=== PATIENT | male | born 1950 | race Caucasian/White ===

== ENCOUNTER 2022-05-18 06:50 | Inpatient (IN) | payer MEDICARE ==
[2022-05-13 14:37] LABS: BASOPHILS # (AUTO) 0.1 X10'3 (0-0.2); BASOPHILS % (AUTO) 1.1 % (0-1); EOSINOPHILS # (AUTO) 0.1 X10'3 (0-0.9); EOSINOPHILS % (AUTO) 1.7 % (0-6); LYMPHOCYTES # (AUTO) 1.5 X10'3 (1.1-4.8); LYMPHOCYTES % (AUTO) 26.2 % (21-51); MEAN CORPUSCULAR HEMOGLOBIN 24.9 PG (27.0-31.0); MEAN CORPUSCULAR HGB CONC 31.3 g/dL (33.0-36.5); MEAN CORPUSCULAR VOLUME 79.4 FL (78-98); MONOCYTES # (AUTO) 0.6 X10'3 (0-0.9); MONOCYTES % (AUTO) 10.3 % (2-12); NEUTROPHILS # (AUTO) 3.5 X10'3 (1.8-7.7); NEUTROPHILS % (AUTO) 60.7 % (42-75); PRE OP HEMATOCRIT 34.5 % (42.0-52.0); PRE OP PLATELET COUNT 324 X10'3 (140-440); RED BLOOD COUNT 4.35 X10'6 (4.70-6.10); RED CELL DISTRIBUTION WIDTH 17.7 % (11.5-14.5)
[2022-05-13 14:45] LABS: CLARITY,URINE SLIGHTLY CLOUDY (Clear); COLOR,URINE YELLOW (Yellow); GLUCOSE, URINE NEGATIVE (Neg); KETONES,URINE TRACE mg/dl (Neg); LEUKOCYTE ESTERASE ,URINE NEGATIVE (Neg); NITRITES, URINE NEGATIVE (Neg); OCCULT BLOOD,URINE TRACE-INTACT (Neg); PROTEIN,URINE 30 mg/dl (Neg); UROBILINOGEN,URINE 0.2 E.U/dL (0.2-1.0)
[2022-05-13 14:49] LABS: PRE OP HEMOGLOBIN 10.8 g/dL (14.0-17.9); PRE OP INR 1.2 INR; PRE OP PROTIME 11.9 SECONDS (9.0-12.0)
[2022-05-13 14:50] LABS: UA COLLECTION TYPE CLN CATCH MIDSTREAM
[2022-05-13 14:58] LABS: ALBUMIN 3.3 G/DL (3.4-5.0); ALBUMIN/GLOBULIN RATIO 0.7 (1.1-1.5); ALKALINE PHOSPHATASE 66 IU/L (46-116); BLOOD UREA NITROGEN 10 MG/DL (7-18); BUN/CREATININE RATIO 10.6 (5.4-32.0); CHLORIDE 109 MMOL/L (99-107); CREATININE 0.94 MG/DL (0.60-1.10); PRE OP ALT 19 U/L (30-65); PRE OP ANION GAP 13 (8-16); PRE OP AST 16 U/L (10-37); PRE OP BILIRUB, TOTAL 0.5 MG/DL (0.0-1.0); PRE OP GLUCOSE 84 MG/DL (70-104); PRE OP POTASSIUM 3.5 MMOL/L (3.4-5.1); PRE OP SODIUM 145 MMOL/L (135-145); TOTAL CARBON DIOXIDE 22.8 MMOL/L (24-32); TOTAL PROTEIN 7.8 G/DL (6.4-8.2); eGFR 79 ML/MIN
[2022-05-13 14:59] LABS: BACTERIA,URINE NONE SEEN /HPF (Neg); MUCUS STRANDS MODERATE /LPF (Neg); RBC,URINE 0-2 /HPF (0-2); SQUAMOUS EPITHELIAL CELL,UR MODERATE /LPF (FEW); WBC,URINE 0-4 /HPF (0-4)
[2022-05-18] VITALS (13 sets, daily range): BP systolic 118–136; BP diastolic 67–87
[~2022-05-18] VITALS: Ht 177.8 cm; Wt 76.6 kg
[~2022-05-18 06:50] MED LIST: APIX5TAB3 PO; CLINDAMYCIN PO; METF-436 PO; MIDO10TA PO; PRAS25CA PO; clindamycin-Cleocin 900mg/D5W 50 ML IV ONE; famotidine 20mg tablet PO ONE
[2022-05-18] MEDS ORDERED: BUPIVAcaine/PF 2.5mg/ml (0.25%) 10ml vial ONE ×2 (07:13→14:33)
[2022-05-18] MEDS: ringers solution, lacted 1,000 ML IV SCH ×2 (08:06→17:13)
[2022-05-18] MEDS ORDERED: morphine 2 MG/ML inj. syringe IV PRN (08:25)
[2022-05-18] MEDS ORDERED: morphine 4 MG/ML inj SYRINge IV PRN (08:25)
[2022-05-18] MEDS ORDERED: labetalol 20mg/4ml (5mg/ml) syringe IV PRN (08:25)
[2022-05-18] MEDS ORDERED: hydrALAZINE 20mg/ml inj. IV PRN (08:25)
[2022-05-18] MEDS ORDERED: acetaminophen 1,000mg/100ml IV 100 ML IV PRN (08:25)
[2022-05-18] MEDS ORDERED: ringers solution, lacted 1,000 ML IV SCH (08:25)
[2022-05-18] MEDS ORDERED: proCHLORperazine 10 MG/2 ml inj IV PRN (08:25)
[2022-05-18] MEDS ORDERED: ondansetron/PF 4mg/2ml inj IV PRN (08:25)
[2022-05-18] MEDS ORDERED: meperidine/PF 25mg/ml syringe IV PRN ×3 (08:25)
[2022-05-18] MEDS ORDERED: sevoflurane 250ml liquid IH ONE (11:49)
[2022-05-18] MEDS ORDERED: rocuronium 10mg/ml inj IV ONE ×2 (11:49→13:42)
[2022-05-18] MEDS ORDERED: midazolam 1 mg/ML 2ml injection ONE (11:57)
[2022-05-18] MEDS ORDERED: fentaNYL /PF 50mcg/ml 5ml ampule ONE (11:59)
[2022-05-18] MEDS ORDERED: propofol inj 20 ML IV ONE (13:42)
[2022-05-18] MEDS ORDERED: LIDOcaine 1%/PF 5ML 10 MG/ML VIAL ONE ×2 (13:42)
[2022-05-18] MEDS ORDERED: ePHEDrine 50MG/ML INJ. ONE (13:42)
[2022-05-18] MEDS ORDERED: ondansetron/PF 4mg/2ml inj ONE (13:53)
[2022-05-18] MEDS ORDERED: dexamethasone sod phosphate 4mg/ml inj. ONE (13:53)
[2022-05-18] MEDS ORDERED: albumin (Human) 5% 250ml 250 ML IV ONE (14:15)
[2022-05-18] MEDS ORDERED: morphine 4 MG/ML inj SYRINge ONE (14:29)
[2022-05-18] MEDS ORDERED: BUPIVACAINE liposomal/PF 13.3 MG/ML vial IM ONE (14:33)
[2022-05-18] MEDS ORDERED: glycopyrrolate 0.2mg/ml inj ONE (14:51)
[2022-05-18] MEDS ORDERED: neostigmine methylsulfate 1 MG/ML 10ml vial ONE (14:51)
[2022-05-18] MEDS ORDERED: sugammadex 200mg/2ml injection IV ONE (15:04)
--- NOTE | 2022-05-18 15:10 | NUR ---
Received from OR via , accompanied by Anesthesiologist and report given by Anesthesiolgist. PATIENT WAKING UP, DENIES PAIN, V/S WNL, SCD ON 20G PIV TO LUE, NEUROVASCULAR CHECKS INTACT. LARGE DRESSING TO ABDOMEN CDI WITH NO S/S OF COMPLICATIONS. F/C DRAINING CLEAR YELLOW URINE
[2022-05-18] MEDS ORDERED: HYDROcodone/acetaminophen 10/325mg tab PO ONE (15:40)
--- NOTE | 2022-05-18 16:40 | NUR ---
PATIENT SLEEPY BUT ORIENTED X4, C/O PAIN AT TIMES SEE EMAR., V/S WNL, SCD ON 20G PIV TO LUE, NEUROVASCULAR CHECKS INTACT. LARGE DRESSING TO ABDOMEN CDI WITH NO S/S OF COMPLICATIONS. F/C DRAINING CLEAR YELLOW URINE WITH ONLY 60CC AFTER FLUID BOLUS GIVEN PER DR SANCHEZ. HE IS AWARE. PATIENT TRANSFERED TO [facility] WITH ALL BELONGINGS AND HOOKED UP TO MONITORS IN ROOM AND REPORT GIVEN TO RN WHO HAS TAKEN OVER PATIENT CARE.
--- NOTE | 2022-05-18 17:00 | NUR ---
Received patient to room 4014B. Patient drowsy but easily awakens to voice. Patient c/o nausea. Abd dressing CDI. Barragan catheter patent and draining to gravity.
[2022-05-18] MEDS: clindamycin-Cleocin 900mg/D5W 50 ML IV SCH (17:32)
--- NOTE | 2022-05-18 18:47 | NUR ---
Problems reprioritized. Patient report given, questions answered & plan of care reviewed with SHAGUFTA Payton.
--- NOTE | 2022-05-18 18:50 | NUR ---
Patient in room ORTHO 4014. I have received report from Kelvin EAGLE and had the opportunity to ask questions and assume patient care. Addendum: 05/19/22 at 0018 by Tata Lee RN Amended: Links added.
[2022-05-18] MEDS: apixaban 5mg tablet PO SCH (20:34)
[2022-05-18] MEDS: metFORMIN 500mg tablet PO SCH (20:34)
[2022-05-18] MEDS: clindamycin 150mg capsule PO SCH (20:35)
[2022-05-18] MEDS: HYDROmorphone inj. 0.5 MG/0.5 ML DISP.SYRIN IV PRN (20:41)
[2022-05-19] MEDS: clindamycin-Cleocin 900mg/D5W 50 ML IV SCH ×3 (01:03→16:24)
[2022-05-19 02:00] VITALS: BP 127/76
[2022-05-19 05:00] VITALS: BP 105/75
[2022-05-19] MEDS: HYDROcodone/acetaminophen 10/325mg tab PO PRN ×2 (06:33→14:42)
[2022-05-19 06:41] LABS: BASOPHILS % (AUTO) 0.1 % (0-1); EOSINOPHILS % (AUTO) 0 % (0-6); HEMATOCRIT 36.2 % (42.0-52.0); HEMOGLOBIN 11.6 g/dl (14.0-17.9); LYMPHOCYTES # (AUTO) 0.8 X10'3 (1.1-4.8); LYMPHOCYTES % (AUTO) 6.2 % (21-51); MEAN CORPUSCULAR HEMOGLOBIN 25.1 PG (27.0-31.0); MEAN CORPUSCULAR HGB CONC 32.2 g/dL (33.0-36.5); MEAN PLATELET VOLUME 8.1 FL (7.4-10.4); MONOCYTES # (AUTO) 1.1 X10'3 (0-0.9); NEUTROPHILS # (AUTO) 10.7 X10'3 (1.8-7.7); NEUTROPHILS % (AUTO) 84.7 % (42-75); PLATELET COUNT 355 X10'3 (140-440); RED BLOOD COUNT 4.64 X10'6 (4.70-6.10); RED CELL DISTRIBUTION WIDTH 17.8 % (11.5-14.5); WHITE BLOOD COUNT 12.6 X10'3 (4.5-11.0)
[2022-05-19 07:42] LABS: ALANINE AMINOTRANSFERASE 11 U/L (12-78); ALBUMIN 2.7 G/DL (3.4-5.0); ALBUMIN/GLOBULIN RATIO 0.7 (1.1-1.5); ALKALINE PHOSPHATASE 41 IU/L (46-116); ANION GAP 12 (8-16); ASPARTATE AMINO TRANSFERASE 22 U/L (10-37); BILIRUBIN,TOTAL 1.2 MG/DL (0.1-1.0); BLOOD UREA NITROGEN 22 MG/DL (7-18); CHLORIDE 105 MMOL/L (99-107); CREATININE 1.16 MG/DL (0.60-1.10); GLUCOSE 150 MG/DL (70-104); POTASSIUM 4.3 MMOL/L (3.5-5.1); SODIUM 138 MMOL/L (135-145); TOTAL CARBON DIOXIDE 20.8 MMOL/L (24-32); TOTAL PROTEIN 6.4 G/DL (6.4-8.2); eGFR 62 ML/MIN
--- NOTE | 2022-05-19 07:45 | NUR ---
Discontinued f/c as ordered without incident. Addendum: 05/19/22 at 1431 by Tata Lee RN Amended: Links added.
[2022-05-19] MEDS ORDERED: DHEA 25mg tablet PO SCH ×2 (08:00→13:37)
--- NOTE | 2022-05-19 08:00 | NUR ---
patient awake A & O status post perforated colon with abscess and small-bowel obstruction- midline drg intact with no drainage noted at this time. No c/o n/v at this time. Pt. NPO with ice chips only at this time. Call light within reach and bed in low position. . Addendum: 05/19/22 at 1326 by Tata Lee RN Amended: Links added.
[2022-05-19] MEDS: ondansetron/PF 4mg/2ml inj IV PRN (09:03)
[2022-05-19 10:00] VITALS: BP 126/82
[2022-05-19] MEDS: apixaban 5mg tablet PO SCH ×2 (10:32→20:19)
[2022-05-19] MEDS: clindamycin 150mg capsule PO SCH ×2 (10:32→13:00)
[2022-05-19] MEDS: midodrine tablet 2.5 MG TABLET PO SCH (10:33)
[2022-05-19] MEDS: metFORMIN 500mg tablet PO SCH ×2 (10:34→20:19)
--- NOTE | 2022-05-19 12:10 | NUR ---
Problems reprioritized. Patient report given, questions answered & plan of care reviewed with Luis Antonio EAGLE. Addendum: 05/19/22 at 1409 by Tata Lee RN Amended: Links added.
--- NOTE | 2022-05-19 13:30 | NUR ---
Assumed care of pt. Pt awake and alert. Pt reported minimal abd discomfort at this time. Abd dressing CDI. Pt unable to void via urinal when attempted and did not want to get OOB to void when encouraged. Bladder scan 48ml obtained. No bladder distention noted. IVF running per orders. Ice chips encouraged as that was all po fluids ordered. BS absent when auscultated.
[2022-05-19 13:52] VITALS: BP 127/77
--- NOTE | 2022-05-19 16:30 | NUR ---
Notified Dr. Sparks as pt still has not voided and bladder scan 64ml. Further orders obtained. Pt in no distress.
[2022-05-19] MEDS ORDERED: normal saline 500ml IV soln 500 ML IV ONE (16:35)
[2022-05-19 18:00] VITALS: BP 114/67
[2022-05-19] MEDS: ringers solution, lacted 1,000 ML IV SCH (19:26)
[2022-05-19 22:00] VITALS: BP 109/65
[2022-05-20] MEDS: clindamycin-Cleocin 900mg/D5W 50 ML IV SCH ×3 (00:09→16:47)
[2022-05-20] MEDS: ringers solution, lacted 1,000 ML IV SCH ×3 (00:12→16:47)
--- NOTE | 2022-05-20 06:30 | NUR ---
Report received from SHAGUFTA Abbott
[2022-05-20 06:46] VITALS: BP 110/59
[2022-05-20 07:38] LABS: BASOPHILS % (AUTO) 0.1 % (0-1); EOSINOPHILS % (AUTO) 0 % (0-6); HEMATOCRIT 30.7 % (42.0-52.0); HEMOGLOBIN 9.8 g/dl (14.0-17.9); LYMPHOCYTES # (AUTO) 1.2 X10'3 (1.1-4.8); LYMPHOCYTES % (AUTO) 9.5 % (21-51); MEAN CORPUSCULAR HEMOGLOBIN 24.9 PG (27.0-31.0); MEAN CORPUSCULAR HGB CONC 31.9 g/dL (33.0-36.5); MEAN CORPUSCULAR VOLUME 78.3 FL (78-98); MEAN PLATELET VOLUME 8.2 FL (7.4-10.4); MONOCYTES # (AUTO) 1.2 X10'3 (0-0.9); MONOCYTES % (AUTO) 9.8 % (2-12); NEUTROPHILS # (AUTO) 10.2 X10'3 (1.8-7.7); NEUTROPHILS % (AUTO) 80.6 % (42-75); PLATELET COUNT 279 X10'3 (140-440); RED BLOOD COUNT 3.92 X10'6 (4.70-6.10); RED CELL DISTRIBUTION WIDTH 17.8 % (11.5-14.5); WHITE BLOOD COUNT 12.7 X10'3 (4.5-11.0)
[2022-05-20] MEDS: metFORMIN 500mg tablet PO SCH ×2 (07:45→20:03)
[2022-05-20] MEDS: midodrine tablet 2.5 MG TABLET PO SCH (07:45)
[2022-05-20] MEDS: apixaban 5mg tablet PO SCH ×2 (07:45→20:03)
[2022-05-20 08:16] LABS: ALANINE AMINOTRANSFERASE 9 U/L (12-78); ALBUMIN 2.3 G/DL (3.4-5.0); ALBUMIN/GLOBULIN RATIO 0.7 (1.1-1.5); ALKALINE PHOSPHATASE 40 IU/L (46-116); ANION GAP 6 (8-16); ASPARTATE AMINO TRANSFERASE 15 U/L (10-37); BILIRUBIN,TOTAL 1.2 MG/DL (0.1-1.0); BLOOD UREA NITROGEN 22 MG/DL (7-18); BUN/CREATININE RATIO 20.6 (5.4-32.0); CALCIUM 8.8 MG/DL (8.5-10.1); CHLORIDE 105 MMOL/L (99-107); CREATININE 1.07 MG/DL (0.60-1.10); GLUCOSE 93 MG/DL (70-104); SODIUM 137 MMOL/L (135-145); TOTAL CARBON DIOXIDE 25.7 MMOL/L (24-32); TOTAL PROTEIN 5.8 G/DL (6.4-8.2); eGFR 68 ML/MIN
[2022-05-20 10:00] VITALS: BP 126/90
[2022-05-20] MEDS: calcium carbonate 500mg chew tablet PO PRN (13:35)
--- NOTE | 2022-05-20 14:21 | NUR ---
Ambulated patient approx 450 feet, patient tolerated well. Moderate amount of burping throughout walk however no flatus passed as of yet. Gave patient insentive spirometer and instructed on use. Dr. Sparks was called for order of prn tums which was received
--- NOTE | 2022-05-20 16:28 | NUR ---
Dr. Sparks rounded on patient, orders received for daily wet to dry dressing change. Dressing change performed for 05/20. Patient ambulated 300 feet with one person assistance with the front wheeled walker.
[2022-05-20] MEDS ORDERED: acetaminophen 325mg tablet PO PRN (16:45)
[2022-05-20 17:00] VITALS: BP 142/81
[2022-05-20 18:00] VITALS: BP 121/82
--- NOTE | 2022-05-20 18:26 | NUR ---
Report given to SHAGUFTA Abbott
[2022-05-20 22:00] VITALS: BP 120/81
[2022-05-21] MEDS: ringers solution, lacted 1,000 ML IV SCH ×2 (00:35→01:45)
[2022-05-21] MEDS: clindamycin-Cleocin 900mg/D5W 50 ML IV SCH ×2 (00:37→08:49)
[2022-05-21] MEDS: calcium carbonate 500mg chew tablet PO PRN (01:43)
[2022-05-21] MEDS: ondansetron/PF 4mg/2ml inj IV PRN (04:26)
[2022-05-21 06:00] VITALS: BP 139/84
--- NOTE | 2022-05-21 06:25 | NUR ---
Problems reprioritized. Patient report given, questions answered & plan of care reviewed with SHAGUFTA Orosco.
[2022-05-21] MEDS: midodrine tablet 2.5 MG TABLET PO SCH (08:00)
[2022-05-21] MEDS: apixaban 5mg tablet PO SCH ×2 (08:49→19:44)
[2022-05-21 10:00] VITALS: BP 143/89
[2022-05-21] MEDS ORDERED: insulin Lispro (HumaLOG) vial - multi-dose SQ SCH (10:15)
[2022-05-21] MEDS ORDERED: MESSAGE TO PHARMACY PO ONE (10:15)
[2022-05-21] MEDS ORDERED: DEXTROSE 15 GM of carb/4 tabs (each vial/BOTTLE has 4 tablets) PO PRN ×2 (10:15)
[2022-05-21] MEDS ORDERED: dextrose 50%-water 50ml dispensing syringe IV PRN ×2 (10:15)
[2022-05-21] MEDS ORDERED: glucagon, human recombinant 1mg kit SUBCUT PRN (10:15)
[2022-05-21] MEDS: dextrose 5%-lactated ringers 1,000 ML IV SCH ×3 (11:00→19:46)
[2022-05-21 11:32] LABS: HEMOGLOBIN A1C 6.1 % (4.5-6.2)
[2022-05-21] MEDS: HYDROmorphone inj. 0.5 MG/0.5 ML DISP.SYRIN IV PRN ×2 (12:36→19:45)
--- NOTE | 2022-05-21 18:09 | NUR ---
Per Dr Oliva no popsicles yet.
--- NOTE | 2022-05-21 18:16 | NUR ---
Problems reprioritized. Patient report given, questions answered & plan of care reviewed with Tricia EAGLE and Dyan EAGLE.
--- NOTE | 2022-05-21 18:37 | NUR ---
Patient in room ORTHO 4013 B. I have received report from Ana Luisa EAGLE and had the opportunity to ask questions and assume patient care.
[2022-05-21] MEDS: insulin glargine (Lantus) pen - multi-dose SQ SCH (21:00)
[2022-05-21 22:00] VITALS: BP 163/80
[2022-05-22] MEDS: dextrose 5%-lactated ringers 1,000 ML IV SCH ×2 (04:35→20:35)
[2022-05-22] MEDS: HYDROmorphone inj. 0.5 MG/0.5 ML DISP.SYRIN IV PRN ×2 (05:28→23:32)
[2022-05-22 05:34] LABS: BASOPHILS % (AUTO) 0.2 % (0-1); EOSINOPHILS % (AUTO) 0.3 % (0-6); HEMATOCRIT 28.8 % (42.0-52.0); HEMOGLOBIN 9.1 g/dl (14.0-17.9); LYMPHOCYTES # (AUTO) 0.8 X10'3 (1.1-4.8); LYMPHOCYTES % (AUTO) 10.1 % (21-51); MEAN CORPUSCULAR HEMOGLOBIN 24.7 PG (27.0-31.0); MEAN CORPUSCULAR HGB CONC 31.7 g/dL (33.0-36.5); MEAN CORPUSCULAR VOLUME 78.1 FL (78-98); MEAN PLATELET VOLUME 8.3 FL (7.4-10.4); MONOCYTES # (AUTO) 0.9 X10'3 (0-0.9); MONOCYTES % (AUTO) 11.6 % (2-12); NEUTROPHILS % (AUTO) 77.8 % (42-75); PLATELET COUNT 328 X10'3 (140-440); RED BLOOD COUNT 3.68 X10'6 (4.70-6.10); RED CELL DISTRIBUTION WIDTH 17.4 % (11.5-14.5); WHITE BLOOD COUNT 7.7 X10'3 (4.5-11.0)
[2022-05-22 06:00] VITALS: BP 121/77
[2022-05-22 06:09] LABS: ALBUMIN 1.9 G/DL (3.4-5.0); ANION GAP 8 (8-16); BLOOD UREA NITROGEN 14 MG/DL (7-18); BUN/CREATININE RATIO 21.9 (5.4-32.0); CALCIUM 8.8 MG/DL (8.5-10.1); CHLORIDE 103 MMOL/L (99-107); CREATININE 0.64 MG/DL (0.60-1.10); GLUCOSE 148 MG/DL (70-104); MAGNESIUM 1.5 MG/DL (1.5-2.4); SODIUM 142 MMOL/L (135-145); eGFR > 90 ML/MIN
[2022-05-22 06:15] LABS: POTASSIUM 2.9 MMOL/L (3.5-5.1)
--- NOTE | 2022-05-22 06:27 | NUR ---
Problems reprioritized. Patient report given, questions answered & plan of care reviewed with Glenis cartagena.
--- NOTE | 2022-05-22 06:55 | NUR ---
Diabetes consult: noted pt w/ hx of DM A1c 6.1 well controlled and appropriate. DM ed not indicated at this time. Addendum: 05/22/22 at [address] Amended: Links added.
[2022-05-22] MEDS ORDERED: magnesium 4gm in 100ml NS 100 ML IV ONE (08:00)
[2022-05-22] MEDS ORDERED: pantoprazole 40MG/NS 100ML BAG 100 ML IV SCH (08:00)
[2022-05-22] MEDS ORDERED: potassium Cl 10 mEq/100mL bag IV ONE (08:00)
[2022-05-22] MEDS: potassium Cl 10 mEq/100mL bag IV SCH ×10 (09:00→20:48)
--- NOTE | 2022-05-22 09:00 | NUR ---
Pj aware of pt's recorded fever.
[2022-05-22 10:00] VITALS: BP 124/71
[2022-05-22] MEDS: apixaban 5mg tablet PO SCH ×2 (10:08→19:29)
[2022-05-22] MEDS: midodrine tablet 2.5 MG TABLET PO SCH (10:09)
[2022-05-22] MEDS: pantoprazole 40mg Tablet.DR PO SCH (10:09)
[2022-05-22 18:00] VITALS: BP 140/84
--- NOTE | 2022-05-22 18:34 | NUR ---
Gave report to Milena EAGLE.
[2022-05-22] MEDS: insulin glargine (Lantus) pen - multi-dose SQ SCH (20:51)
[2022-05-22 22:00] VITALS: BP 156/83
[2022-05-23] MEDS: dextrose 5%-lactated ringers 1,000 ML IV SCH ×4 (02:15→22:47)
[2022-05-23 05:32] LABS: BASOPHILS % (AUTO) 0.3 % (0-1); EOSINOPHILS # (AUTO) 0.2 X10'3 (0-0.9); EOSINOPHILS % (AUTO) 2.9 % (0-6); HEMATOCRIT 27.1 % (42.0-52.0); HEMOGLOBIN 8.7 g/dl (14.0-17.9); LYMPHOCYTES # (AUTO) 1.5 X10'3 (1.1-4.8); LYMPHOCYTES % (AUTO) 21.8 % (21-51); MEAN CORPUSCULAR HGB CONC 32.2 g/dL (33.0-36.5); MEAN CORPUSCULAR VOLUME 77.7 FL (78-98); MONOCYTES % (AUTO) 14.6 % (2-12); NEUTROPHILS # (AUTO) 4.1 X10'3 (1.8-7.7); NEUTROPHILS % (AUTO) 60.4 % (42-75); PLATELET COUNT 329 X10'3 (140-440); RED BLOOD COUNT 3.49 X10'6 (4.70-6.10); RED CELL DISTRIBUTION WIDTH 17.5 % (11.5-14.5); WHITE BLOOD COUNT 6.7 X10'3 (4.5-11.0)
[2022-05-23 05:59] LABS: ALBUMIN 1.9 G/DL (3.4-5.0); ANION GAP 6 (8-16); BLOOD UREA NITROGEN 11 MG/DL (7-18); BUN/CREATININE RATIO 19.6 (5.4-32.0); CALCIUM 8.6 MG/DL (8.5-10.1); CHLORIDE 104 MMOL/L (99-107); CREATININE 0.56 MG/DL (0.60-1.10); GLUCOSE 125 MG/DL (70-104); MAGNESIUM 1.9 MG/DL (1.5-2.4); SODIUM 140 MMOL/L (135-145); TOTAL CARBON DIOXIDE 30.5 MMOL/L (24-32); eGFR > 90 ML/MIN
[2022-05-23 06:07] LABS: POTASSIUM 2.9 MMOL/L (3.5-5.1)
[2022-05-23 07:00] VITALS: BP 144/91
--- NOTE | 2022-05-23 07:32 | NUR ---
Patient in room ORTHO 4020. I have received report from Milena EAGLE and had the opportunity to ask questions and assume patient care.
--- NOTE | 2022-05-23 07:45 | NUR ---
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 Pt has been NPO/Clear liquids since admit, not meeting nutrient needs. Has NGT to suction though pt is reportedly having bowel movements. Recommend advancing to Low fiber diet as tolerated. Pt at high risk for developing malnutrition if diet cannot be advanced. Pt receiving D5/LR at 150ml/hr providing 612kcals/day. Will continue to monitor Recs: 1. Advance to Low fiber diet as medically indicated 2. Monitor need for ONS once diet advanced 3. Bowel care per MD 4. Weekly wts Addendum: 05/23/22 at [address] Amended: Links added.
[2022-05-23] MEDS: apixaban 5mg tablet PO SCH ×2 (09:35→21:52)
[2022-05-23] MEDS: pantoprazole 40mg Tablet.DR PO SCH (09:35)
[2022-05-23] MEDS: midodrine tablet 2.5 MG TABLET PO SCH (09:35)
[2022-05-23 09:37] VITALS: BP 144/91
[2022-05-23 10:00] VITALS: BP 154/91
[2022-05-23] MEDS: HYDROmorphone inj. 0.5 MG/0.5 ML DISP.SYRIN IV PRN (10:12)
[2022-05-23] MEDS: potassium Cl 10 mEq/100mL bag IV SCH ×7 (11:30→21:27)
[2022-05-23] MEDS: POTASSIUM BICARB 20meq eff tab 20 MEQ TABLET.EFF PO SCH ×2 (12:57→21:52)
--- NOTE | 2022-05-23 14:02 | NUR ---
Stopped NG tube to give vitamin K effexor, fell on floor given again. Patient up and walked with PT 300ft, now sitting in chair. NG still off, with connect when back to bed.
[2022-05-23 18:00] VITALS: BP 138/93
--- NOTE | 2022-05-23 18:26 | NUR ---
Problems reprioritized. Patient report given, questions answered & plan of care reviewed with Lou Blake RN.
--- NOTE | 2022-05-23 18:30 | NUR ---
Patient in room ORTHO 4020. I have received report from MICHELLE EAGLE and had the opportunity to ask questions and assume patient care.
[2022-05-23] MEDS: insulin glargine (Lantus) pen - multi-dose SQ SCH (21:00)
[2022-05-23 22:00] VITALS: BP 145/91
[2022-05-24] MEDS: dextrose 5%-lactated ringers 1,000 ML IV SCH (05:21)
--- NOTE | 2022-05-24 06:30 | NUR ---
Problems reprioritized. Patient report given, questions answered & plan of care reviewed with MICHELLE EAGLE.
[2022-05-24 06:54] LABS: BASOPHILS % (AUTO) 0.2 % (0-1); EOSINOPHILS # (AUTO) 0.2 X10'3 (0-0.9); EOSINOPHILS % (AUTO) 2.2 % (0-6); HEMATOCRIT 28.4 % (42.0-52.0); HEMOGLOBIN 9.3 g/dl (14.0-17.9); LYMPHOCYTES # (AUTO) 1.3 X10'3 (1.1-4.8); MEAN CORPUSCULAR HEMOGLOBIN 25.6 PG (27.0-31.0); MEAN CORPUSCULAR HGB CONC 32.7 g/dL (33.0-36.5); MEAN CORPUSCULAR VOLUME 78.4 FL (78-98); MONOCYTES % (AUTO) 12.2 % (2-12); NEUTROPHILS # (AUTO) 6.1 X10'3 (1.8-7.7); NEUTROPHILS % (AUTO) 70.4 % (42-75); PLATELET COUNT 353 X10'3 (140-440); RED BLOOD COUNT 3.62 X10'6 (4.70-6.10); RED CELL DISTRIBUTION WIDTH 17.8 % (11.5-14.5); WHITE BLOOD COUNT 8.6 X10'3 (4.5-11.0)
--- NOTE | 2022-05-24 07:27 | NUR ---
Rounded on patient, he is requesting another room. I stated "we could try but the floor is full, and we have six surgeries coming" I asked patient if he wanted to walk after med pass, and he stated "no I just want to sleep" I educated he needed to get his bowels moving more consistantly.
[2022-05-24 07:29] VITALS: BP 165/97
[2022-05-24 07:36] LABS: ALBUMIN 1.9 G/DL (3.4-5.0); ANION GAP 8 (8-16); BLOOD UREA NITROGEN 7 MG/DL (7-18); BUN/CREATININE RATIO 11.1 (5.4-32.0); CALCIUM 8.8 MG/DL (8.5-10.1); CHLORIDE 105 MMOL/L (99-107); CREATININE 0.63 MG/DL (0.60-1.10); GLUCOSE 123 MG/DL (70-104); MAGNESIUM 1.4 MG/DL (1.5-2.4); SODIUM 140 MMOL/L (135-145); TOTAL CARBON DIOXIDE 27.1 MMOL/L (24-32); eGFR > 90 ML/MIN
[2022-05-24] MEDS: POTASSIUM BICARB 20meq eff tab 20 MEQ TABLET.EFF PO SCH (09:22)
[2022-05-24] MEDS: apixaban 5mg tablet PO SCH ×2 (09:22→21:01)
[2022-05-24] MEDS: midodrine tablet 2.5 MG TABLET PO SCH (09:22)
[2022-05-24] MEDS: pantoprazole 40mg Tablet.DR PO SCH (09:23)
[2022-05-24 10:25] VITALS: BP_SYST 116; BP_SYST 168; BP_SYST 99; BP_DIAS 64; BP_DIAS 85; BP_DIAS 99
--- NOTE | 2022-05-24 10:27 | NUR ---
Physical Therapy Orthostatic Vitals. Addendum: 05/24/22 at 1027 by Lorraine Lazo RN Amended: Links added.
--- NOTE | 2022-05-24 11:29 | NUR ---
Pavithra nurse changed dressing early am, Qday dressing change. Will change dressing if doctor wants to see incision. Addendum: 05/24/22 at 1130 by Lorraine Lazo RN Amended: Links added.
--- NOTE | 2022-05-24 12:36 | NUR ---
Doctor into see patient orders received.
[2022-05-24 18:00] VITALS: BP 146/97
--- NOTE | 2022-05-24 18:18 | NUR ---
Problems reprioritized. Patient report given, questions answered & plan of care reviewed with Lou Blake RN.
--- NOTE | 2022-05-24 18:30 | NUR ---
Patient in room ORTHO 4020. I have received report from MICHELLE EAGLE and had the opportunity to ask questions and assume patient care.
[2022-05-24 20:00] VITALS: BP_SYST 132; BP_SYST 138; BP_DIAS 85; BP_DIAS 89
[2022-05-24] MEDS ORDERED: magnesium Cl slow-release 64mg tablet PO PRN (20:45)
[2022-05-24] MEDS ORDERED: potassium CL 10mEq/100ml bag 100 ML IV PRN (20:45)
[2022-05-24] MEDS ORDERED: magnesium 2GM in 50ml NS 50 ML IV PRN (20:45)
[2022-05-24] MEDS ORDERED: magnesium 4gm in 100ml NS 100 ML IV PRN (20:45)
[2022-05-24] MEDS: insulin glargine (Lantus) pen - multi-dose SQ SCH (21:00)
[2022-05-24] MEDS: POTASSIUM BICARB 20meq eff tab 20 MEQ TABLET.EFF PO PRN (21:21)
[2022-05-24 22:00] VITALS: BP 139/88
[2022-05-24] MEDS: Melatonin 3mg tablet PO SCH (22:20)
[2022-05-25 02:53] VITALS: BP 146/97
[2022-05-25 06:00] VITALS: BP 139/78
--- NOTE | 2022-05-25 06:30 | NUR ---
Problems reprioritized. Patient report given, questions answered & plan of care reviewed with MICHELLE EAGLE.
[2022-05-25 06:36] LABS: MAGNESIUM 1.4 MG/DL (1.5-2.4); POTASSIUM 3.1 MMOL/L (3.5-5.1)
[2022-05-25] MEDS: pantoprazole 40mg Tablet.DR PO SCH (07:42)
[2022-05-25] MEDS: midodrine tablet 2.5 MG TABLET PO SCH (07:42)
[2022-05-25] MEDS: POTASSIUM BICARB 20meq eff tab 20 MEQ TABLET.EFF PO PRN ×2 (07:42→19:26)
[2022-05-25] MEDS: apixaban 5mg tablet PO SCH ×2 (07:42→19:26)
--- NOTE | 2022-05-25 07:53 | NUR ---
When asked to walk patient states "I want to rest" Addendum: 05/25/22 at 0754 by Lorraine Lazo RN Amended: Links added.
--- NOTE | 2022-05-25 08:08 | NUR ---
Reassessment: Pt has been advanced to Full liquid diet on 05/24 and NGT has been removed. Pt still not meeting nutrient needs. Given inadequate intake for 7 days and mild muscle weakness, pt meets minimum criteria for malnutrition. Recommend advancing to Low Fiber diet as medically indicated. LBM 05/24. Will continue to monitor. Recs: 1. Advance to Low fiber diet as medically indicated 2. Monitor need for ONS once diet advanced 3. Bowel care per MD 4. Weekly wts Addendum: 05/25/22 at [address] Amended: Links added.
[2022-05-25] MEDS: K and/or MAG REPLACEMENT MC SCH ×2 (08:09→19:26)
[2022-05-25 10:00] VITALS: BP 152/97
--- NOTE | 2022-05-25 15:44 | NUR ---
PATIENT REFUSES TO GET UP AND WALK WITH NURSING
--- NOTE | 2022-05-25 16:06 | NUR ---
Call to Dr Peralta to notify that wound width has increased and pt needs to be evaluated. Call was [phone]. Report to primary nurse and new photo taken of wound. Dressed with silver alginate folded 4 x 4 and tape then placed folded ABD and secured with tape. Addendum: 05/25/22 at 1610 by Tammi Stanley RN Amended: Links added.
[2022-05-25 18:00] VITALS: BP 143/91
[2022-05-25] MEDS: magnesium hydroxide 30ml (MOM) UD suspension PO SCH (19:25)
[2022-05-25] MEDS ORDERED: Melatonin 3mg tablet PO SCH (21:00)
[2022-05-25] MEDS: insulin glargine (Lantus) pen - multi-dose SQ SCH (21:00)
[2022-05-25] MEDS: Melatonin 3mg tablet PO SCH (21:52)
[2022-05-25] MEDS: diatr meglu/diatrizoate 30ml oral sol.-(3 dose) bottle PO SCH (21:53)
[2022-05-25 22:00] VITALS: BP 115/67
[2022-05-26] MEDS: POTASSIUM BICARB 20meq eff tab 20 MEQ TABLET.EFF PO PRN (04:24)
[2022-05-26 06:00] VITALS: BP 117/80
--- NOTE | 2022-05-26 06:41 | NUR ---
reported to days. noted pt aware of CT scan this am.
[2022-05-26 07:10] LABS: POTASSIUM 3.5 MMOL/L (3.5-5.1)
[2022-05-26] MEDS: diatr meglu/diatrizoate 30ml oral sol.-(3 dose) bottle PO SCH ×2 (07:21→19:19)
[2022-05-26] MEDS: K and/or MAG REPLACEMENT MC SCH ×2 (08:00→19:28)
[2022-05-26] MEDS: apixaban 5mg tablet PO SCH ×2 (09:18→22:15)
[2022-05-26] MEDS: pantoprazole 40mg Tablet.DR PO SCH (09:18)
[2022-05-26] MEDS: midodrine tablet 2.5 MG TABLET PO SCH (09:19)
[2022-05-26] MEDS: magnesium hydroxide 30ml (MOM) UD suspension PO SCH ×2 (09:19→19:28)
[2022-05-26 10:00] VITALS: BP 125/77
--- NOTE | 2022-05-26 14:19 | NUR ---
Pt had CT scan done this am. Addendum: 05/26/22 at 1423 by Tammi Stanley RN Amended: Links added.
[2022-05-26 18:00] VITALS: BP 131/83
[2022-05-26] MEDS: insulin glargine (Lantus) pen - multi-dose SQ SCH (19:29)
[2022-05-26 22:00] VITALS: BP 132/89
[2022-05-26 22:10] VITALS: BP_SYST 121; BP_SYST 129; BP_SYST 132; BP_DIAS 80; BP_DIAS 86; BP_DIAS 89
[2022-05-26] MEDS: Melatonin 3mg tablet PO SCH (22:15)
[2022-05-27 06:00] VITALS: BP 118/77
--- NOTE | 2022-05-27 06:11 | NUR ---
educated patient extensively about ileus and need for stool softeners. encouraged pt to ask surgeon what to take for stool to stay soft enough to prevent worsening ileus. pt anticipates discharge today. printed ileus education for pt.
--- NOTE | 2022-05-27 06:18 | NUR ---
reported to SHAGUFTA Salmon. noted patient education and possible discharge today
[2022-05-27 07:31] LABS: MAGNESIUM 1.8 MG/DL (1.5-2.4)
[2022-05-27 07:44] LABS: POTASSIUM 2.8 MMOL/L (3.5-5.1)
[2022-05-27] MEDS: magnesium hydroxide 30ml (MOM) UD suspension PO SCH (08:00)
[2022-05-27] MEDS: K and/or MAG REPLACEMENT MC SCH (08:00)
[2022-05-27] MEDS: POTASSIUM BICARB 20meq eff tab 20 MEQ TABLET.EFF PO PRN ×2 (08:48→13:04)
[2022-05-27] MEDS: apixaban 5mg tablet PO SCH (08:49)
[2022-05-27] MEDS: midodrine tablet 2.5 MG TABLET PO SCH (08:49)
[2022-05-27] MEDS: pantoprazole 40mg Tablet.DR PO SCH (08:49)
[2022-05-27 10:00] VITALS: BP 124/85
[2022-05-27 10:01] VITALS: BP 122/81
[2022-05-27 10:02] VITALS: BP 128/80
--- NOTE | 2022-05-27 11:33 | NUR ---
Reassessment: Patient's diet has been advanced to regular and pt documented with 100% PO intake first meal since diet advancement. Pt would benefit from diet change to low fiber in view of recent GI surgery. [facility] 05/26. Will continue to follow and monitor need for nutrition intervention pending further trends in PO intake. Recommendations: 1. Change to low fiber diet in view of recent GI surgery 2. Monitor need for ONS/additional protein 3. Bowel care per MD 4. Weekly scaled wts Addendum: 05/27/22 at [address] Amended: Links added.
== END 2022-05-27 15:05 | disposition home health service (06) | DRG 330 ==
LOC: PAS IN 06:50 → ORTHO 4S 16:45
PROVIDERS: ADMIT Surgery; ATTEND Surgery
PROC: 0DNW0ZZ Release Peritoneum, Open Approach (ICD-10-PCS; 2022-05-18)
PROC: 0DBL0ZZ Excision of Transverse Colon, Open Approach (ICD-10-PCS; 2022-05-18)
PROC: 0DN80ZZ Release Small Intestine, Open Approach (ICD-10-PCS; 2022-05-18)
PROC: 0DBB0ZZ Excision of Ileum, Open Approach (ICD-10-PCS; principal; 2022-05-18 11:49)
PROC: 0D9670Z Drainage of Stomach with Drainage Device, Via Natural or Artificial Opening (ICD-10-PCS; 2022-05-21)
DX: Z43.2 Encounter for attention to ileostomy (principal); E46 Unspecified protein-calorie malnutrition; K56.7 Ileus, unspecified; K92.1 Melena; K66.0 Peritoneal adhesions (postprocedural) (postinfection); E87.6 Hypokalemia
CPT/HCPCS: 36415; 74176; 80048; 80053; 81001; 82948; 83036; 83735; 84132; 85025; 85610; 85730; 86885; 86900; 86901; 86920; 87081; 93005; 97116; 97161; 97530; A4618; A6196; A6253; A6258; A6446; A6449; A7000; C1758; C9290; G0378; J0780; J1100; J1170; J1815; J2175; J2250; J2270; J2405; J2704; J2710; J3010; J3475; J3480; J3490; J7040; J7042; J7120; J7121; P9045; Q9963